=== PATIENT | female | born 1980 | race Caucasian/White ===

== ENCOUNTER 2018-08-03 19:19 | Emergency (ER) | payer MEDICAID, OTHER ==
[2018-08-03 19:32] VITALS: BP 137/89; PULSE 77; TEMP 98.1; O2SAT 99
--- NOTE | 2018-08-03 20:35 | C.PDOC ---
History Of Present Illness 38 y/o female c/o right sided headache that started yesterday, similar in nature to other headaches she has had in past, but more severe. pt reports taking several doses of motrin that gave mild relief but headache returned. denies nausea, fever, vomiting. +mild photophobia. pt sts she gets similar right sided headache once a month before or after menses since 2010. Time Seen by Provider: 08/03/18 20:06 Chief Complaint (Nursing): Headache History Per: Patient History/Exam Limitations: no limitations Onset/Duration Of Symptoms: Days (2) Current Symptoms Are (Timing): Still Present Severity: Moderate Quality: "Pain" Preceeding Symptoms: None Associated Symptoms: Photophobia. denies: Nausea, Vomiting, Extremity Weakness Past Medical History Reviewed: Historical Data, Nursing Documentation, Vital Signs Vital Signs: Last Vital Signs Temp 98.1 F 08/03/18 19:29 Pulse 77 08/03/18 19:29 Resp 16 08/03/18 19:29 BP 137/89 08/03/18 19:29 Pulse Ox 99 08/03/18 19:29 - Medical History PMH: Migraine Family History: States: Unknown Family Hx - Social History Hx Alcohol Use: No Hx Substance Use: No Review Of Systems Constitutional: Negative for: Fever, Chills Eyes: Negative for: Pain, Vision Change ENT: Negative for: Ear Pain Cardiovascular: Negative for: Chest Pain Respiratory: Negative for: Cough, Shortness of Breath Gastrointestinal: Negative for: Nausea, Vomiting Skin: Negative for: Rash Neurological: Positive for: Headache. Negative for: Weakness, Numbness, Dizziness Physical Exam - Physical Exam Appears: Non-toxic, In Acute Distress (painful) Skin: Warm, Dry Head: Atraumatic, Normacephalic Eye(s): bilateral: Normal Inspection, PERRL, EOMI Ear(s): Bilateral: Normal Oral Mucosa: Moist Neck: Supple Chest: No Deformity, No Tenderness Cardiovascular: Rhythm Regular, No Murmur Respiratory: No Decreased Breath Sounds, No Wheezing Gastrointestinal/Abdominal: Soft, No Tenderness Extremity: Normal ROM, No Tenderness Neurological/Psych: Oriented x3, Normal Speech, Normal Cognition, Normal Cranial Nerves, Normal Motor, Normal Sensation, Other (no pronator drift, norm intact, finger-nose normal. ) ED Course And Treatment - Laboratory Results Result Diagrams: 08/03/18 20:45 08/03/18 20:45 O2 Sat by Pulse Oximetry: 99 Medical Decision Making Medical Decision Makin38 y/o female with right sided headache. similar to past headaches but worse today. no prior workup for headaches. plan: poc, head ct. iv reglan, labs, re-eval 2[address] pt with neg head ct, normal labs, with no pain at this time. will d/c home with im and neuro f/u Disposition Counseled Patient/Family Regarding: Studies Performed, Diagnosis, Need For Followup - Disposition Referrals: Rafa Gallagher MD [Staff Provider] - [facility] [Outside] Disposition: HOME/ ROUTINE Disposition Time: 22:09 Condition: IMPROVED Additional Instructions: Follow up with medical clinic and with Dr Gallagher, neurologist. Call for appointments. Keep headache diary to bring with you. Return to ER for any worsening symptoms or concerns. Instructions: Headache, Adult (DC) Forms: [facility] (Salvadorean), General Discharge Instructions - Clinical Impression Clinical Impression: Headache
[2018-08-03 20:50] LABS: BASO # 0.1 K/uL (0.0-0.2); BASO % 1.4 % (0.0-2.0); EOS # 0.3 K/uL (0.0-0.7); EOS % 3.2 % (0.0-4.0); HEMOGLOBIN 12.7 g/dL (11.0-16.0); LYMPH # 3.5 K/uL (1.0-4.3); LYMPH % 36.2 % (20.0-40.0); MEAN CELL VOLUME 77.8 fL (81.0-99.0); MEAN CORPUSCULAR HGB CONC 33.5 g/dL (33.0-37.0); MEAN PLATELET VOLUME 7.9 fL (7.2-11.7); MONO # 0.4 K/uL (0.0-0.8); MONO % 4.4 % (0.0-10.0); NEUT # 5.2 K/uL (1.8-7.0); NEUT % 54.8 % (50.0-75.0); RBC 4.88 Mil/uL (3.80-5.20); RED CELL DISTRIBUTION WIDTH 14.1 % (11.5-14.5); WHITE BLOOD COUNT 9.5 K/uL (4.8-10.8)
[2018-08-03 21:03] LABS: BLOOD UREA NITROGEN 14 mg/dL (7-17); CALCIUM 9.2 mg/dl (8.6-10.4); GFR NON-AFRICAN AMERICAN > 60
[2018-08-03 21:05] LABS: ALB/GLOB RATIO 1.5 (1.0-2.1); ALBUMIN 4.8 g/dL (3.5-5.0); ALT/SGPT 24 U/L (9-52); AST/SGOT 47 U/L (14-36)
[2018-08-03 22:23] VITALS: RESP 20
--- NOTE | 2018-08-04 09:20 | CT ---
Date of service: 08/03/2018 PROCEDURE: CT HEAD WITHOUT CONTRAST. HISTORY: right side headache COMPARISON: None available. TECHNIQUE: Axial computed tomography images were obtained through the head/brain without intravenous contrast. Radiation dose: Total exam DLP = 945.84 mGy-cm. This CT exam was performed using one or more of the following dose reduction techniques: Automated exposure control, adjustment of the mA and/or kV according to patient size, and/or use of iterative reconstruction technique. FINDINGS: HEMORRHAGE: No intracranial hemorrhage. BRAIN: No mass effect or edema. No atrophy or chronic microvascular ischemic changes. VENTRICLES: Unremarkable. No hydrocephalus. CALVARIUM: Unremarkable. PARANASAL SINUSES: Unremarkable as visualized. No significant inflammatory changes. MASTOID AIR CELLS: Unremarkable as visualized. No inflammatory changes. OTHER FINDINGS: None. IMPRESSION: No evidence of acute intracranial hemorrhage mass mass effect or midline shift. Preliminary report was submitted by [facility] Radiology contains concordant findings.
== END 2018-08-03 22:22 | disposition home or self-care (01) ==
LOC: C.ER 19:19
DX: R51 Headache (principal)
CPT/HCPCS: 70450; 80053; 85025; 96374; 99284; J2765

== ENCOUNTER 2018-10-31 12:19 | Emergency (ER) | payer OTHER ==
[2018-10-31 13:36] LABS: ALB/GLOB RATIO 1.5 (1.0-2.1); ALBUMIN 4.4 g/dL (3.5-5.0); ALT/SGPT 25 U/L (9-52); AST/SGOT 25 U/L (14-36); BLOOD UREA NITROGEN 12 mg/dL (7-17); CALCIUM 9.3 mg/dl (8.6-10.4); GFR NON-AFRICAN AMERICAN > 60
--- NOTE | 2018-10-31 13:39 | C.PDOC ---
History Of Present Illness 38 y/o female presents to the ED with complaints of severe right-sided headache that started yesterday. She mentions previous hx of migraines, and is followed by PMD who prescribes her Motrin for pain. Patient tried taking 800 mg Motrin twice yesterday with minimal relief. She awoke this morning with 9/10 headache, right-sided, radiating down her jaw. She denies any fever, chills, nausea, vomiting, dizziness, visual loss, photophobia, previous aura, or neck stiffness. Patient has had similar headaches in the past, usually related to her menses. Was seen here in 08/03/18 for same complaint, and had normal CT and labs at that time. Patient was referred to neurologist but admits she has not followed up. Time Seen by Provider: 10/31/18 12:30 Chief Complaint (Nursing): Headache History Per: Patient History/Exam Limitations: no limitations Onset/Duration Of Symptoms: Days (2) Current Symptoms Are (Timing): Still Present Severity: Severe Pain Scale Rating Of: 9 Additional History Per: Prior Records Past Medical History Reviewed: Historical Data, Nursing Documentation, Vital Signs Vital Signs: Last Vital Signs Temp 98.4 F 10/31/18 12:31 Pulse 77 10/31/18 12:31 Resp 20 10/31/18 12:31 BP 136/97 H 10/31/18 12:31 Pulse Ox 100 10/31/18 12:31 - Medical History PMH: Migraine Family History: States: Unknown Family Hx - Social History Hx Alcohol Use: No Hx Substance Use: No - Immunization History Hx Tetanus Toxoid Vaccination: No Hx Influenza Vaccination: No Hx Pneumococcal Vaccination: No Review Of Systems Constitutional: Negative for: Fever, Chills Eyes: Negative for: Vision Change, Other (Photophobia) Cardiovascular: Negative for: Chest Pain, Palpitations Respiratory: Negative for: Shortness of Breath Gastrointestinal: Negative for: Nausea, Vomiting Musculoskeletal: Negative for: Neck Pain, Back Pain Neurological: Positive for: Headache. Negative for: Weakness, Numbness, Dizziness Physical Exam - Physical Exam Appears: Non-toxic, No Acute Distress, Other (Appears uncomfortable) Skin: Warm, Dry, No Rash Head: Atraumatic, Normacephalic Eye(s): bilateral: Normal Inspection (no nystagmus), PERRL, EOMI Oral Mucosa: Moist Neck: Normal ROM, Supple, Other (No meningeal signs) Chest: Symmetrical Cardiovascular: Rhythm Regular, No Murmur Respiratory: Normal Breath Sounds, No Accessory Muscle Use, Other (No respiratory distress) Extremity: Bilateral: Atraumatic, Normal Color And Temperature, Normal ROM Pulses: Left Radial: Normal, Right Radial: Normal Neurological/Psych: Oriented x3, Normal Speech, Normal Cognition, Normal Cranial Nerves (2-12 grossly intact), Normal Motor (5/5 strength throughout), Normal Sensation Gait: Steady ED Course And Treatment O2 Sat by Pulse Oximetry: 100 (RA) Pulse Ox Interpretation: Normal Medical Decision Making Medical Decision Making: Impression: Right-sided headache Plan: - Labs - Head CT - 10 mg IV Reglan - 2 mg IV Morphine Disposition - Disposition - PA / BAG SEALER / Resident Statement MD/DO has reviewed & agrees with the documentation as recorded. - Scribe Statement The provider has reviewed the documentation as recorded by the Scribe Angelica Tavera All medical record entries made by the Scribe were at my direction and personally dictated by me. I have reviewed the chart and agree that the record accurately reflects my personal performance of the history, physical exam, medical decision making, and the department course for this patient. I have also personally directed, reviewed, and agree with the discharge instructions and disposition.
[2018-10-31 13:43] LABS: BASO # 0.1 K/uL (0.0-0.2); BASO % 0.5 % (0.0-2.0); EOS # 0.2 K/uL (0.0-0.7); EOS % 2.2 % (0.0-4.0); HEMOGLOBIN 12.6 g/dL (11.0-16.0); LYMPH # 3.7 K/uL (1.0-4.3); MEAN CORPUSCULAR HEMOGLOBIN 26.4 pg (27.0-31.0); MEAN CORPUSCULAR HGB CONC 33.4 g/dL (33.0-37.0); MEAN PLATELET VOLUME 7.8 fL (7.2-11.7); MONO # 0.7 K/uL (0.0-0.8); MONO % 7.5 % (0.0-10.0); NEUT # 5.1 K/uL (1.8-7.0); NEUT % 51.8 % (50.0-75.0); NRBC % 0.1 % (0.0-2.0); RBC 4.8 Mil/uL (3.80-5.20); RED CELL DISTRIBUTION WIDTH 14.2 % (11.5-14.5); WHITE BLOOD COUNT 9.8 K/uL (4.8-10.8)
--- NOTE | 2018-10-31 13:47 | C.PDOC ---
History Of Present Illness 38 y/o female presents to the ED with complaints of severe right-sided headache that started yesterday. She mentions previous hx of migraines, and is followed by PMD who prescribes her Motrin for pain. Patient tried taking 800 mg Motrin twice yesterday with minimal relief. She awoke this morning with 9/10 headache, right-sided, radiating down her jaw. She denies any fever, chills, nausea, vomiting, dizziness, visual loss, photophobia, previous aura, or neck stiffness. Patient has had similar headaches in the past, usually related to her menses. Was seen here in 08/03/18 for same complaint, and had normal CT and labs at that time. Patient was referred to neurologist but admits she has not followed up. Time Seen by Provider: 10/31/18 12:30 Chief Complaint (Nursing): Headache History Per: Patient History/Exam Limitations: no limitations Onset/Duration Of Symptoms: Days (x2) Current Symptoms Are (Timing): Still Present Severity: Severe Pain Scale Rating Of: 9 Past Medical History Reviewed: Historical Data, Nursing Documentation, Vital Signs Vital Signs: Last Vital Signs Temp 98.4 F 10/31/18 12:31 Pulse 70 10/31/18 13:00 Resp 20 10/31/18 13:00 BP 132/88 10/31/18 13:00 Pulse Ox 100 10/31/18 13:41 - Medical History PMH: Migraine Family History: States: Unknown Family Hx - Social History Hx Alcohol Use: No Hx Substance Use: No - Immunization History Hx Tetanus Toxoid Vaccination: No Hx Influenza Vaccination: No Hx Pneumococcal Vaccination: No Review Of Systems Except As Marked, All Systems Reviewed And Found Negative. Constitutional: Negative for: Fever, Chills Eyes: Negative for: Vision Change, Other (Photophobia) Cardiovascular: Negative for: Chest Pain, Palpitations Respiratory: Negative for: Shortness of Breath Gastrointestinal: Negative for: Nausea, Vomiting Musculoskeletal: Negative for: Neck Pain Neurological: Positive for: Headache. Negative for: Weakness, Numbness, Change in Speech, Dizziness Physical Exam - Physical Exam Appears: Non-toxic, No Acute Distress, Other (Appears uncomfortable) Skin: Warm, Dry, No Rash Head: Atraumatic, Normacephalic Eye(s): bilateral: Normal Inspection (no nystagmus), PERRL, EOMI Oral Mucosa: Moist Neck: Normal ROM, Supple, Other (No meningeal signs) Chest: Symmetrical Cardiovascular: Rhythm Regular, No Murmur Respiratory: Normal Breath Sounds, No Accessory Muscle Use, Other (No respiratory distress) Gastrointestinal/Abdominal: Soft, No Tenderness, No Distention Extremity: Bilateral: Atraumatic, Normal Color And Temperature, Normal ROM Pulses: Left Radial: Normal, Right Radial: Normal Neurological/Psych: Oriented x3, Normal Speech, Normal Cognition, Normal Cranial Nerves (2-12 grossly intact), Normal Motor (5/5 strength throughout), Normal Sensation Gait: Steady ED Course And Treatment - Laboratory Results Result Diagrams: 10/31/18 13:18 10/31/18 13:18 Lab Results: Total Bilirubin 0.3 mg/dL (0.2-1.3) 10/31/18 13:18 AST 25 U/L (14-36) 10/31/18 13:18 ALT 25 U/L (9-52) 10/31/18 13:18 Alkaline Phosphatase 76 U/L (38-126) 10/31/18 13:18 Total Protein 7.4 g/dL (6.3-8.3) 10/31/18 13:18 Albumin 4.4 g/dL (3.5-5.0) 10/31/18 13:18 Globulin 3.0 gm/dL (2.2-3.9) 10/31/18 13:18 Albumin/Globulin Ratio 1.5 (1.0-2.1) 10/31/18 13:18 O2 Sat by Pulse Oximetry: 100 (RA) Pulse Ox Interpretation: Normal - CT Scan/US Head CT Other Rad Studies (CT/US): Read By Radiologist, Radiology Report Reviewed CT/US Interpretation: Accession No. : [id number]. Patient Name / ID : SB [facility] / [id number]. Exam Date : 10/31/2018 13:39:09 ( Approved ). Study Comment : Sex / Age : F / 38Y. Creator : Tate Roach. Dictator : Rancho Menezes MD. Flavor Tank Tender : Managing Director : Rancho Menezes MD. Approver2 : Report Date : 10/31/2018 13:47:52. My Comment : . Date of service: 10/31/2018. PROCEDURE: CT HEAD WITHOUT CONTRAST. HISTORY: severe Headache. COMPARISON: 08/03/2018. TECHNIQUE: Axial computed tomography images were obtained through the head/brain without intravenous contrast. Radiation dose: Total exam DLP = 1124.57 mGy-cm. This CT exam was performed using one or more of the following dose reduction techniques: Automated exposure control, adjustment of the mA and/or kV according to patient size, and/or use of iterative reconstruction technique. FINDINGS: HEMORRHAGE: No intracranial hemorrhage. BRAIN: No mass effect or edema. No atrophy or chronic microvascular ischemic changes. V ENTRICLES: Unremarkable. No hydrocephalus. CALVARIUM: Unremarkable. PARANASAL SINUSES: Unremarkable as visualized. No significant inflammatory changes. MASTOID AIR CELLS: Unremarkable as visualized. No inflammatory changes. OTHER FINDINGS: None. IMPRESSION: Normal CT of the Head. No intr acranial mass, hemorrhage or evidence of acute infarct Medical Decision Making Medical Decision Making: Impression: Right-sided headache Plan: - Labs - Head CT - 10 mg IV Reglan - 2 mg IV Morphine - Reassess CT is negative. On reassessment patient is resting comfortably and remains afebrile, AAOx3, in no acute distress. Patient will be discharged home with RX for Fioricet. Counseled patient regarding diagnosis and the importance of follow up with neurology. Referral provided for neuro on-call. Disposition Counseled Patient/Family Regarding: Studies Performed, Diagnosis, Need For Followup, Rx Given - Disposition Referrals: Rafa Gallagher MD [Staff Provider] - Disposition: HOME/ ROUTINE Disposition Time: 14:28 Condition: STABLE Additional Instructions: TACO BASURTO, thank you for letting us take care of you today. Your provider was Samira Lawson MD and you were treated for SEVERE MIGRAINE. The emergency medical care you received today was directed at your acute symptoms. If you were prescribed any medication, please fill it and take as directed. It may take several days for your symptoms to resolve. Return to the Emergency Department if your symptoms worsen, do not improve, or if you have any other problems. Please contact your doctor or call one of the physicians/clinics you have been referred to that are listed on the Patient Visit Information form that is included in your discharge packet. Bring any paperwork you were given at discharge with you along with any medications you are taking to your follow up visit. Our treatment cannot replace ongoing medical care by a primary care provider outside of the emergency department. Thank you for allowing the [facility] team to be part of your care today. Prescriptions: Acetaminophen/Butalbital/Caf [Fioricet] 1 tab PO Q4 #30 tab Instructions: Headache, Adult (DC) Forms: [facility] (Romansh) - Clinical Impression Clinical Impression: Headache - PA / SPECIAL EVENTS MANAGER / Resident Statement MD/DO has reviewed & agrees with the documentation as recorded. - Scribe Statement The provider has reviewed the documentation as recorded by the Scribreva Tavera All medical record entries made by the Scribe were at my direction and personally dictated by me. I have reviewed the chart and agree that the record accurately reflects my personal performance of the history, physical exam, medical decision making, and the department course for this patient. I have also personally directed, reviewed, and agree with the discharge instructions and disposition.
--- NOTE | 2018-10-31 14:22 | CT ---
Date of service: 10/31/2018 PROCEDURE: CT HEAD WITHOUT CONTRAST. HISTORY: severe Headache COMPARISON: 08/03/2018 TECHNIQUE: Axial computed tomography images were obtained through the head/brain without intravenous contrast. Radiation dose: Total exam DLP = 1124.57 mGy-cm. This CT exam was performed using one or more of the following dose reduction techniques: Automated exposure control, adjustment of the mA and/or kV according to patient size, and/or use of iterative reconstruction technique. FINDINGS: HEMORRHAGE: No intracranial hemorrhage. BRAIN: No mass effect or edema. No atrophy or chronic microvascular ischemic changes. VENTRICLES: Unremarkable. No hydrocephalus. CALVARIUM: Unremarkable. PARANASAL SINUSES: Unremarkable as visualized. No significant inflammatory changes. MASTOID AIR CELLS: Unremarkable as visualized. No inflammatory changes. OTHER FINDINGS: None. IMPRESSION: Normal CT of the Head. No intracranial mass, hemorrhage or evidence of acute infarct
[2018-10-31 14:51] VITALS: BP 132/74; PULSE 74; RESP 18; TEMP 98.6; O2SAT 98
== END 2018-10-31 14:52 | disposition home or self-care (01) ==
LOC: C.ER 12:19
DX: R51 Headache (principal)
CPT/HCPCS: 70450; 80053; 82948; 85025; 85651; 96374; 99285; J2270; J2765

== ENCOUNTER 2018-11-24 11:30 | Emergency (ER) | payer OTHER ==
[2018-11-24 11:41] VITALS: BP 130/85; PULSE 77; RESP 18; TEMP 97.7; O2SAT 100
[2018-11-24] MEDS ORDERED: Naproxen 550 mg Tab PO STA (12:16)
[2018-11-24] MEDS ORDERED: Naproxen 550 mg Tab PO ONE (12:30)
--- NOTE | 2018-11-24 13:05 | RAD ---
Date of service: 11/24/2018 PROCEDURE: Radiographs of the Lumbar Spine. HISTORY: Low back pain COMPARISON: No prior. FINDINGS: BONES: Normal alignment. No listhesis. No fracture. DISC SPACES: Disc space heights relatively maintained. Minor facet arthropathy L5-S1 and to a lesser degree L4-L5 levels. OTHER FINDINGS: None. IMPRESSION: No acute fractures.
--- NOTE | 2018-11-24 13:24 | C.PDOC ---
History Of Present Illness 38 y/o female presents to the ED complaining of chronic back pain for approximately 2-3 months, worse in the last month. She states pain worsens with standing. Patient denies any blunt trauma or recent falls. She also denies associated dysuria, hematuria, fever, sensory changes, or extremity weakness. Patient is ambulatory in the ED with steady gait. Time Seen by Provider: 11/24/18 11:37 Chief Complaint (Nursing): Back Pain History Per: Patient History/Exam Limitations: no limitations Onset/Duration Of Symptoms: Days Current Symptoms Are (Timing): Still Present Past Medical History Reviewed: Historical Data, Nursing Documentation, Vital Signs Vital Signs: Last Vital Signs Temp 97.7 F 11/24/18 11:38 Pulse 77 11/24/18 11:38 Resp 18 11/24/18 11:38 BP 130/85 11/24/18 11:38 Pulse Ox 100 11/24/18 11:38 - Medical History PMH: Migraine Family History: States: Unknown Family Hx - Social History Hx Alcohol Use: No Hx Substance Use: No - Immunization History Hx Tetanus Toxoid Vaccination: No Hx Influenza Vaccination: No Hx Pneumococcal Vaccination: No Review Of Systems Constitutional: Negative for: Fever, Chills Cardiovascular: Negative for: Chest Pain Respiratory: Negative for: Shortness of Breath Gastrointestinal: Negative for: Nausea, Vomiting, Diarrhea Genitourinary: Negative for: Dysuria, Frequency, Hematuria Musculoskeletal: Positive for: Back Pain Neurological: Negative for: Weakness, Numbness Physical Exam - Physical Exam Appears: Non-toxic, No Acute Distress Skin: Warm, Dry, No Rash Head: Atraumatic, Normacephalic Eye(s): bilateral: Normal Inspection, PERRL, EOMI Oral Mucosa: Moist Neck: Normal ROM Chest: Symmetrical Cardiovascular: Rhythm Regular, No Murmur Respiratory: Normal Breath Sounds, No Accessory Muscle Use, No Wheezing Back: No Vertebral Tenderness, Paraspinal Tenderness (paralumbar) Extremity: Bilateral: Atraumatic, Normal Color And Temperature, Normal ROM Neurological/Psych: Oriented x3, Normal Speech Gait: Steady ED Course And Treatment O2 Sat by Pulse Oximetry: 100 (RA) Pulse Ox Interpretation: Normal - Other Rad LS spine xr X-Ray: Read By Radiologist Interpretation: Accession No. : [id number]. Patient Name / ID : SB [facility] / [id number]. Exam Date : 11/24/2018 12:42:12 ( Approved ). Study Comment : Sex / Age : F / 38Y. Creator : paloma luo. Dictator : Bryce Rizo MD. Manufacturing Sr Engineer : Knockout Man : Bryce Rizo MD. Approver2 : Report Date : 11/24/2018 12:52:11. My Comment : . Date of service: 11/24/2018. PROCEDURE: Radiographs of the Lumbar Spine. HISTORY: Low back pain. COMPARISON: No prior. FINDINGS: BONES: Normal alignment. No listhesis. No fracture. DISC SPACES: Disc space heights relatively maintained. Minor facet arthropathy L5-S1 and to a lesser degree L4-L5 levels. OTHER FINDINGS: None. IMPRESSION: No acute fractures. Progress Note: Flexeril and Naproxen were given in the ED. X-ray taken, showing no acute findings. Patient counseled regarding negative imaging and diagnosis. Will discharge patient home with prescriptions for Flexeril and Naproxen. Disposition Counseled Patient/Family Regarding: Studies Performed, Diagnosis, Need For Followup, Rx Given - Disposition Referrals: [facility] [Outside] Disposition: HOME/ ROUTINE Disposition Time: 13:20 Condition: STABLE Additional Instructions: FOLLOW UP IN THE MEDICAL CLINIC IN 1-2 DAYS USE MEDICATIONS NEEDED RETURN TO ER IF SYMPTOMS WORSEN Prescriptions: Cyclobenzaprine [Flexeril] 10 mg PO BID PRN #15 tab PRN Reason: Muscle Spasm Naproxen 375 mg PO BID PRN #20 tablet PRN Reason: pain Instructions: Lumbar Muscle Strain (DC) Forms: [facility] (Lao) Print Language: ROMANIAN - POA Present On Arrival: None - Clinical Impression Clinical Impression: Low back strain, Lumbar sprain - Scribe Statement The provider has reviewed the documentation as recorded by the Ghisliane Tavera Provider Attestation: All medical record entries made by the Scribe were at my direction and personally dictated by me. I have reviewed the chart and agree that the record accurately reflects my personal performance of the history, physical exam, medical decision making, and the department course for this patient. I have also personally directed, reviewed, and agree with the discharge instructions and disposition.
== END 2018-11-24 13:40 | disposition home or self-care (01) ==
LOC: C.ER 11:30
DX: S39.012A Strain of muscle, fascia and tendon of lower back, initial encounter (principal); S33.5XXA Sprain of ligaments of lumbar spine, initial encounter; X58.XXXA Exposure to other specified factors, initial encounter

== ENCOUNTER 2019-01-09 16:25 | Emergency (ER) | payer OTHER ==
[2019-01-09 16:38] VITALS: RESP 18; O2SAT 99; BMI 33.0
--- NOTE | 2019-01-09 17:08 | C.PDOC ---
History Of Present Illness 38 year old female presents to ED with complaint of lower back pain for the past 2 days. Patient states that she is unable to stand due to the pain and cries due to the pain. Patient was seen 1 month ago for the same symptoms. Patient also complained of mild neck pain and numbness to her bilateral arms. Patient denies of pain to her legs, hematuria, dysuria, abdominal pain, incontinence, fall, trauma, and heavy lifting. Time Seen by Provider: 01/09/19 16:44 Chief Complaint (Nursing): Back Pain History Per: Patient History/Exam Limitations: no limitations Onset/Duration Of Symptoms: Days (2) Current Symptoms Are (Timing): Still Present Quality Of Discomfort: "Pain" Previous Symptoms: Back Pain Associated Symptoms: New Numbness (bilateral arms). denies: New Weakness Past Medical History Reviewed: Historical Data, Nursing Documentation, Vital Signs Vital Signs: Last Vital Signs Temp 97.7 F 01/09/19 16:34 Pulse 90 01/09/19 16:34 Resp 18 01/09/19 16:34 BP 134/85 01/09/19 16:34 Pulse Ox 99 01/09/19 16:34 Primary Care Provider: Marielos Davis - Medical History PMH: Migraine Surgical History: No Surg Hx Family History: States: Unknown Family Hx - Social History Hx Alcohol Use: No Hx Substance Use: No - Immunization History Hx Tetanus Toxoid Vaccination: No Hx Influenza Vaccination: No Hx Pneumococcal Vaccination: No Review Of Systems Constitutional: Negative for: Fever, Chills, Weakness Gastrointestinal: Negative for: Abdominal Pain Genitourinary: Negative for: Dysuria, Incontinence, Hematuria Musculoskeletal: Positive for: Neck Pain (mild neck pain ) Neurological: Positive for: Numbness. Negative for: Weakness (bilateral arms) Physical Exam - Physical Exam Appears: Well, Non-toxic, No Acute Distress Skin: Normal Color, Warm, Dry Head: Atraumatic, Normacephalic Neck: Normal ROM, No Midline Cervical Tenderness, No Paracervical Tenderness, Supple Chest: Symmetrical, No Deformity, No Tenderness Cardiovascular: Rhythm Regular, No Murmur Respiratory: No Accessory Muscle Use, No Rales, No Rhonchi, No Wheezing Gastrointestinal/Abdominal: Soft, No Tenderness Back: No Vertebral Tenderness, No Paraspinal Tenderness Extremity: Capillary Refill (<2 seconds) Neurological/Psych: Oriented x3, Normal Speech, Normal Cognition ED Course And Treatment O2 Sat by Pulse Oximetry: 99 (in RA) Pulse Ox Interpretation: Normal Medical Decision Making Medical Decision Making: Initial Plan: Decadron IM Toradol IM POC u-preg On re-exam, the patient reports improvement of symptoms. Lungs are CTA, heart is RRR, abdomen is soft, non-tender and tolerating PO well. Pt is ambulatory in the ED with steady gait. Follow up with the medical doctor within 1-2 days. Return if worsened Disposition - Disposition Referrals: [facility] at [facility] [Outside] Clayton Lazaro MD [Non-Staff] - Disposition: HOME/ ROUTINE Disposition Time: 18:02 Condition: STABLE Additional Instructions: Follow up with the medical doctor within 1-2 days. Return if worsened. Prescriptions: Naproxen [Naprosyn] 500 mg PO BID #20 tab predniSONE [Prednisone] 20 mg PO BID #10 tab Instructions: Sciatica Exercises Forms: [employer] (Estonian) - Clinical Impression Clinical Impression: Low back pain, Sciatica - PA / GUITAR MAKER / Resident Statement MD/DO has reviewed & agrees with the documentation as recorded. (Leslie Black) - Scribe Statement The provider has reviewed the documentation as recorded by the Scribe (Leslie Black) All medical record entries made by the Scribe were at my direction and personally dictated by me. I have reviewed the chart and agree that the record accurately reflects my personal performance of the history, physical exam, medical decision making, and the department course for this patient. I have also personally directed, reviewed, and agree with the discharge instructions and disposition.
[2019-01-09] MEDS ORDERED: Dexamethasone 4 mg/1 ml IM STA (17:09)
[2019-01-09 18:06] VITALS: BP 128/78; PULSE 84; TEMP 98.2
== END 2019-01-09 18:12 | disposition home or self-care (01) ==
LOC: C.ER 16:25
DX: M54.40 Lumbago with sciatica, unspecified side (principal)
CPT/HCPCS: 81025; 96372; 99283; J1100; J1885